=== PATIENT | female | born 1975 | race Two or more races ===

== ENCOUNTER 2020-06-01 13:52 | Inpatient (IN) | payer OTHER, SELFPAY ==
[~2020-06-01] VITALS: Ht 165.1 cm; Wt 69.4 kg
[2020-06-01] VITALS (9 sets, daily range): BP systolic 117–140; BP diastolic 67–79
--- NOTE | 2020-06-01 14:38 | NUR ---
UNIFORMER: PT TO ROOM FROM LOBBY
--- NOTE | 2020-06-01 14:51 | NUR ---
TASK RN NOTE: PT BROUGHT BACK TO ROOM, CHANGED INTO GOWN AND PLACED ON BP, SPO2 AND CARDIAC MONITORS. AT BEDSIDE. AWAITING JULIA FLOYD. REPORT TO DANIELA BOND.
[2020-06-01] MEDS ORDERED: ASPIRIN 81 MG TABLET CHEW PO ONE (15:30)
[2020-06-01] MEDS ORDERED: ONDANSETRON 2MG/ML, 2ML IVPush ONE (15:30)
[2020-06-01] MEDS ORDERED: SODIUM CHLORIDE FLUSH 10ML SYR IVF ONE (15:30)
[2020-06-01] MEDS ORDERED: MORPHINE SULFATE 4 MG/ML, 1ML ONE ×2 (15:37→17:13)
[2020-06-01] MEDS ORDERED: ONDANSETRON 2MG/ML, 2ML ONE (15:37)
[2020-06-01] MEDS ORDERED: ASPIRIN 81 MG TABLET CHEW ONE (15:37)
[2020-06-01] MEDS: MORPHINE SULFATE 4 MG/ML, 1ML IVPush PRN ×2 (15:42→17:29)
[2020-06-01 15:47] LABS: BASOPHILS % (AUTO) 1 % (0-1); EOSINOPHILS % (AUTO) 1 % (1-7); LYMPHOCYTES % (AUTO) 13 % (22-44); MEAN CORPUSCULAR HEMOGLOBIN 14.4 pg (27.0-34.8); MEAN PLATELET VOLUME 8.4 fL (7.4-10.4); MONOCYTES % (AUTO) 8 % (2-9); NEUTROPHILS % (AUTO) 77 % (42-75); PLATELET COUNT 565 x10^3/uL (130-400); RED BLOOD COUNT 3.58 x10^6/uL (3.82-5.3); RED CELL DISTRIBUTION WIDTH 21.3 % (9.6-15.2)
--- NOTE | 2020-06-01 15:48 | NUR ---
BREAK RN: PT RESTING IN ROOM. NUCLEAR WEAPONS SPECIALIST ON. NSR NOTED. FAMILY AT BEDSIDE. CALL LIGHT IN PLACE. WILL CONTINUE TO MONITOR WHILE PRIMARY RN IS ON BREAK.
[2020-06-01 15:52] LABS: ALANINE AMINOTRANSFERASE 16 U/L (12-78); ALBUMIN 2.9 g/dL (3.4-5.0); ANION GAP 8 mmol/L (5-15); CALCIUM 8.3 mg/dL (8.5-10.1); CHLORIDE 110 mmol/L (98-107)
[2020-06-01 15:56] LABS: ALKALINE PHOSPHATASE 73 U/L (45-117); BILIRUBIN,TOTAL 0.3 mg/dL (0.2-1.0); MEAN CORPUSCULAR HGB CONC 27.1 g/dL (32.4-35.8); TOTAL PROTEIN 7.7 g/dL (6.4-8.2)
--- NOTE | 2020-06-01 16:23 | NUR ---
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
[2020-06-01 16:29] LABS: MD MORPH REVIEW ONLY
[2020-06-01 16:30] LABS: ANISOCYTOSIS 1+; HYPOCHROMIA 3+; MICROCYTOSIS 2+
[2020-06-01 16:31] LABS: OVALOCYTES 1+; POLYCHROMASIA 1+; TEAR DROPS 1+
[2020-06-01 16:35] LABS: <PLATELET ESTIMATE> INCREASED
--- NOTE | 2020-06-01 16:45 | NUR ---
REPORT TO MAKEDA SUAREZ
--- NOTE | 2020-06-01 16:47 | NUR ---
PT MOVED TO ROOM 41 FOLLOWING COVID SWAB. PURPLE SLIP SENT TO BLOOD BANK. DR GALEANO AT BEDSIDE FOR ASSESSMENT.
[2020-06-01] MEDS ORDERED: NITROGLYCERIN SINGLE TAB 0.4 MG SL ONE ×2 (17:00→17:13)
[2020-06-01] MEDS ORDERED: morphine SULFATE 10 MG/ML, 1ML IVPush PRN (17:00)
[2020-06-01] MEDS ORDERED: CEFTRIAXONE PMX 1GM/50ML 50 ML IV ONE (17:00)
--- NOTE | 2020-06-01 17:00 | NUR ---
DISCUSSION WITH DR BREEN REGARDING BLOOD CULTURES, DR BREEN DENIES NEED FOR ORDERING THESE AT THIS TIME.
--- NOTE | 2020-06-01 17:03 | NUR ---
RBC TRANSFUSION INITIATED. RN TO REMAIN IN ROOM WITH PT. PT AND PT'S AWARE OF SYMPTOMS OF TRANSFUSION REACTION. NAD NOTED AT THIS TIME. 2L NC PLACED ON PT FOR H&H AND OXYGENATION SUPPORT.
[2020-06-01] MEDS ORDERED: CEFTRIAXONE PMX 1GM/50ML 50 ML ONE (17:13)
--- NOTE | 2020-06-01 17:47 | NUR ---
US AT BEDSIDE. HOB TO LEVEL OF COMFORT AND ACCESS FOR US. RN HELPED PT OUT OF PANTS. PT LAYING BACK IN BED, NAD NOTED AT THIS TIME.
[2020-06-01] MEDS: SODIUM CHLORIDE 0.9% 1,000 ML IV SCH (17:57)
--- NOTE | 2020-06-01 18:13 | NUR ---
PT TOLERATED US WELL. UP INDEPENDENTLY TO USE BATHROOM. BACK IN BED, NAD NOTED AT THIS TIME. AT BEDSIDE. FIRST UNIT STILL INFUSING AT THIS TIME. SIDE RAIL UP. AWAITING ADMISSION BED ASSIGNMENT.
--- NOTE | 2020-06-01 18:22 | NUR ---
CARDIAC DIET TEJAS ORDERED FOR PT. CALL TO LAB FOR FASTING LIPID LAB DRAW. PER LAB "WE WILL SEND SOMEONE OVER RIGHT NOW."
--- NOTE | 2020-06-01 19:07 | NUR ---
REPORT TO DANIELA BELLA. PT SITTING UP EATING DINNER. AT BEDSIDE. NAD NOTED AT THIS TIME.
[2020-06-01] MEDS: ATORVASTATIN 80 MG TABLET PO SCH (21:00)
[2020-06-01] MEDS ORDERED: METOPROLOL TARTRATE 25 MG TAB ONE (21:15)
[2020-06-01] MEDS: METOPROLOL TARTRATE 25 MG TAB PO SCH (21:24)
[2020-06-01] MEDS ORDERED: ATORVASTATIN 80 MG TABLET ONE (21:26)
--- NOTE | 2020-06-01 22:12 | NUR ---
REPORT OF PT FROM DANIELA BELLA AND ASSUMING CARE OF PT AT THIS TIME.
--- NOTE | 2020-06-01 23:25 | NUR ---
PT AMBULATES FROM RESTROOM BACK TO ROOM. 3RD UNIT OF PRBC INFUSING AT THIS TIME WITH VERIFICATION OF BLOOD PRODUCT WITH DANIELA Delvalle. PT RESTING COMFORTABLY IN [facility] AT THIS TIME WITH NADN. QUINTERO. PT HAS CALL LIGHT WITHIN REACH AT THIS TIME.
--- NOTE | 2020-06-01 23:51 | NUR ---
3RD UNIT INFUSING. 15 AND 30 MINUTE VSS AND UPDATED IN EMR. PT TOLERATING BLOOD TRANSFUSION WELL AT THIS TIME; NADN. INCREASED RATE OF INFUSION ON PUMP AT THIS TIME.
[2020-06-02 01:57] VITALS: BP 129/78
--- NOTE | 2020-06-02 02:00 | NUR ---
PT 3RD UNIT OF PRBC FINISHED INFUSING AT THIS TIME. PT TOLERATED WELL. PT VSS AND UPDATED IN EMR. PT RESTING IN [facility]; [place]. PT HAS CALL LIGHT WITHIN REACH.
[2020-06-02] MEDS ORDERED: HEPARIN 5,000 UNITS/ML, 1ML ONE (04:14)
[2020-06-02] MEDS ORDERED: HEPARIN 25,000 UNITS/250ML PMX 250 ML ONE (04:14)
--- NOTE | 2020-06-02 04:45 | NUR ---
PT MEDICATED PER MAR WITH WEIGHT BASED HEPARIN PROTOCOL AND 2 RN VERIFICATION WITH LETICIA Mccallum RN. PT VSS AND UPDATED IN EMR AT THIS TIME. PT PLACED BACK ON 2 L NC O2.
[2020-06-02] MEDS ORDERED: HEPARIN 5,000 UNITS/ML, 1ML IV ONE (05:00)
[2020-06-02] MEDS ORDERED: HEPARIN 25,000 UNITS/250ML PMX 250 ML IV PRN (05:00)
[2020-06-02 05:32] LABS: BASOPHILS % (AUTO) 1 % (0-1); EOSINOPHILS % (AUTO) 2 % (1-7); LYMPHOCYTES % (AUTO) 18 % (22-44); MEAN CORPUSCULAR HEMOGLOBIN 18.7 pg (27.0-34.8); MEAN PLATELET VOLUME 8.5 fL (7.4-10.4); MONOCYTES % (AUTO) 7 % (2-9); NEUTROPHILS % (AUTO) 72 % (42-75); PLATELET COUNT 489 x10^3/uL (130-400); RED BLOOD COUNT 4.65 x10^6/uL (3.82-5.3); RED CELL DISTRIBUTION WIDTH 32.3 % (9.6-15.2)
[2020-06-02 05:39] LABS: MEAN CORPUSCULAR HGB CONC 29.7 g/dL (32.4-35.8)
[2020-06-02 05:40] LABS: MD NO
[2020-06-02 05:43] LABS: ALANINE AMINOTRANSFERASE 22 U/L (12-78); ALBUMIN 2.6 g/dL (3.4-5.0); ANION GAP 6 mmol/L (5-15); CHLORIDE 114 mmol/L (98-107); CHOLESTEROL, TOTAL 131 mg/dL (140-239); CREATININE 0.59 mg/dL (0.55-1.02)
[2020-06-02 05:48] LABS: ALKALINE PHOSPHATASE 68 U/L (45-117); BILIRUBIN,TOTAL 1.1 mg/dL (0.2-1.0); CHOL/HDL RATIO 4.4; HDL CHOL % 23 % (28-40); HDL CHOLESTEROL (DIRECT) 30 mg/dL (40-60); LDL CHOLESTEROL,CALCULATED 85 mg/dL (54-169); LDL/HDL RATIO 2.8 (0.5-3.0); TOTAL PROTEIN 6.8 g/dL (6.4-8.2); TRIGLYCERIDES 79 mg/dL (50-200); VLDL CHOLESTEROL 16 mg/dL (0-25)
[2020-06-02] MEDS: METOPROLOL TARTRATE 25 MG TAB PO SCH ×2 (06:00→17:39)
--- NOTE | 2020-06-02 06:08 | NUR ---
PT ASLEEP IN ROLEAN AT THIS TIME. PT WOKEN UP FOR VS. PT SPOUSE AT BS. PT VSS AND UPDATED IN EMR AT THIS TIME. PT DENIES PAIN OR ANY OTHER NEEDS AT THIS TIME. CALL LIGHT IS WITHIN REACH.
--- NOTE | 2020-06-02 06:44 | NUR ---
PT AMBULATORY TO RESTROOM AT THIS TIME WITH STEADY GAIT.
[2020-06-02] MEDS ORDERED: METOPROLOL TARTRATE 25 MG TAB ONE (06:47)
[2020-06-02] MEDS ORDERED: ACETAMINOPHEN 325 MG TABLET ONE (07:19)
[2020-06-02] MEDS: ACETAMINOPHEN 325 MG TABLET PO PRN ×2 (07:22→07:23)
[2020-06-02] MEDS: SODIUM CHLORIDE 0.9% 1,000 ML IV SCH ×2 (07:23→20:39)
[2020-06-02 08:12] LABS: OCCULT BLOOD NEGATIVE (NEGATIVE)
[2020-06-02] MEDS: IRON SUCROSE COMPLEX 100MG/5ML IV SCH (08:23)
[2020-06-02] MEDS: DOCUSATE 100 MG CAPSULE PO SCH ×2 (09:00→20:39)
--- NOTE | 2020-06-02 10:15 | NUR ---
BS REPORT OF PT TO DANIELA PARMAR. ALL QUESTIONS ANSWERED.
--- NOTE | 2020-06-02 10:16 | NUR ---
DR BOWDEN AT BEDSIDE. POC DISCUSSED AND QUESTIONS ANSWERED.
--- NOTE | 2020-06-02 10:22 | NUR ---
BEDSIDE, SBAR RPT REC'D AND PT CARE ASSUMED.
[2020-06-02] MEDS: HEPARIN 5,000 UNITS/ML, 1ML IV PRN ×2 (12:53→20:41)
[2020-06-02 14:23] VITALS: BP 131/72
[2020-06-02 18:37] VITALS: BP 127/80
[2020-06-02] MEDS: ATORVASTATIN 80 MG TABLET PO SCH (20:39)
[2020-06-03 01:05] VITALS: BP 136/85
[2020-06-03 03:07] LABS: BASOPHILS % (AUTO) 2 % (0-1); EOSINOPHILS % (AUTO) 3 % (1-7); LYMPHOCYTES % (AUTO) 24 % (22-44); MEAN CORPUSCULAR HEMOGLOBIN 18.3 pg (27.0-34.8); MEAN PLATELET VOLUME 8.5 fL (7.4-10.4); MONOCYTES % (AUTO) 8 % (2-9); NEUTROPHILS % (AUTO) 64 % (42-75); PLATELET COUNT 527 x10^3/uL (130-400); RED BLOOD COUNT 4.63 x10^6/uL (3.82-5.3); RED CELL DISTRIBUTION WIDTH 32.9 % (9.6-15.2)
[2020-06-03 03:15] LABS: ALANINE AMINOTRANSFERASE 19 U/L (12-78); ALBUMIN 2.7 g/dL (3.4-5.0); ANION GAP 7 mmol/L (5-15); CALCIUM 8.3 mg/dL (8.5-10.1); CHLORIDE 115 mmol/L (98-107)
[2020-06-03 03:18] LABS: ALKALINE PHOSPHATASE 74 U/L (45-117); BILIRUBIN,TOTAL 0.6 mg/dL (0.2-1.0); TOTAL PROTEIN 7.2 g/dL (6.4-8.2)
[2020-06-03 03:37] LABS: MD SCAN; MEAN CORPUSCULAR HGB CONC 29.1 g/dL (32.4-35.8)
[2020-06-03] MEDS: HEPARIN 5,000 UNITS/ML, 1ML IV PRN (04:31)
[2020-06-03] MEDS: METOPROLOL TARTRATE 25 MG TAB PO SCH ×2 (05:36→17:20)
[2020-06-03] MEDS: SODIUM CHLORIDE 0.9% 1,000 ML IV SCH ×2 (05:36→17:22)
[2020-06-03] MEDS: DOCUSATE 100 MG CAPSULE PO SCH ×2 (08:43→20:19)
[2020-06-03] MEDS: IRON SUCROSE COMPLEX 100MG/5ML IV SCH (08:43)
[2020-06-03 09:00] VITALS: BP 118/75
[2020-06-03] MEDS ORDERED: POTASSIUM CHLORIDE 20 MEQ TAB.ER.PRT PO ONE (10:00)
[2020-06-03 10:41] LABS: HCT (SEDRATE) 30.4 % (34.6-47.8)
[2020-06-03] MEDS ORDERED: MIDAZOLAM 1 MG/ML, 5ML ONE (11:49)
[2020-06-03] MEDS ORDERED: VERAPAMIL 2.5 MG/ML, 2ML ONE (11:49)
[2020-06-03] MEDS ORDERED: FENTANYL PF 100 MCG/2ML ONE (11:49)
[2020-06-03] MEDS ORDERED: LIDOCAINE-MPF 1%, 5ML ONE (11:50)
[2020-06-03] MEDS ORDERED: HEPARIN 1,000 UNITS/ML, 10ML ONE (11:50)
[2020-06-03 12:55] LABS: OCCULT BLOOD NEGATIVE (NEGATIVE)
[2020-06-03 13:37] VITALS: BP 124/79
[2020-06-03] MEDS: ACETAMINOPHEN 325 MG TABLET PO PRN (13:58)
[2020-06-03 14:02] VITALS: BP 134/80
[2020-06-03 19:36] VITALS: BP 120/75
[2020-06-03] MEDS: ATORVASTATIN 80 MG TABLET PO SCH (20:19)
[2020-06-04] MEDS: ACETAMINOPHEN 325 MG TABLET PO PRN ×2 (00:16→05:28)
[2020-06-04 00:26] VITALS: BP 154/81
[2020-06-04] MEDS: SODIUM CHLORIDE 0.9% 1,000 ML IV SCH (02:52)
[2020-06-04] MEDS: METOPROLOL TARTRATE 25 MG TAB PO SCH (05:30)
[2020-06-04 05:53] LABS: CHLORIDE 113 mmol/L (98-107)
[2020-06-04 06:01] LABS: ALANINE AMINOTRANSFERASE 19 U/L (12-78); ALBUMIN 2.6 g/dL (3.4-5.0); ALKALINE PHOSPHATASE 71 U/L (45-117); ANION GAP 7 mmol/L (5-15); BILIRUBIN,TOTAL 0.5 mg/dL (0.2-1.0); CALCIUM 8.6 mg/dL (8.5-10.1); CREATININE 0.56 mg/dL (0.55-1.02); TOTAL PROTEIN 6.8 g/dL (6.4-8.2)
[2020-06-04 07:10] VITALS: BP 133/80
[2020-06-04 07:29] LABS: BASOPHILS % (AUTO) 1 % (0-1); EOSINOPHILS % (AUTO) 4 % (1-7); LYMPHOCYTES % (AUTO) 18 % (22-44); MEAN CORPUSCULAR HEMOGLOBIN 18.7 pg (27.0-34.8); MEAN PLATELET VOLUME 8.5 fL (7.4-10.4); MONOCYTES % (AUTO) 9 % (2-9); NEUTROPHILS % (AUTO) 69 % (42-75); PLATELET COUNT 519 x10^3/uL (130-400); RED CELL DISTRIBUTION WIDTH 32.9 % (9.6-15.2)
[2020-06-04 08:06] LABS: MD SCAN
[2020-06-04] MEDS ORDERED: LISI-167 PO (08:35)
[2020-06-04] MEDS ORDERED: ATOR-2 PO (08:35)
[2020-06-04] MEDS: DOCUSATE 100 MG CAPSULE PO SCH (08:43)
[2020-06-04] MEDS: IRON SUCROSE COMPLEX 100MG/5ML IV SCH (08:43)
[2020-06-04] MEDS ORDERED: LISINOPRIL 10 MG TABLET PO SCH (09:00)
[2020-06-04] MEDS ORDERED: METOPROLOL TARTRATE 25 MG TAB PO SCH (18:00)
== END 2020-06-04 12:01 | disposition home or self-care (01) | DRG 282 ==
LOC: ED 16:50 → EDIP 16:56 → ED 20:07 → 5SO 06-02 10:46 → DCLOUNGE 06-04 11:27
PROVIDERS: ADMIT Internal Medicine Infectious Disease; ATTEND Hospitalist
PROC: 30233N1 Transfusion of Nonautologous Red Blood Cells into Peripheral Vein, Percutaneous Approach (ICD-10-PCS; 2020-06-01)
PROC: 4A023N7 Measurement of Cardiac Sampling and Pressure, Left Heart, Percutaneous Approach (ICD-10-PCS; principal; 2020-06-03)
PROC: B2111ZZ Fluoroscopy of Multiple Coronary Arteries using Low Osmolar Contrast (ICD-10-PCS; 2020-06-03)
PROC: B2151ZZ Fluoroscopy of Left Heart using Low Osmolar Contrast (ICD-10-PCS; 2020-06-03)
DX: I21.4 Non-ST elevation (NSTEMI) myocardial infarction (principal); D50.0 Iron deficiency anemia secondary to blood loss (chronic); E87.6 Hypokalemia; I10 Essential (primary) hypertension; I27.20 Pulmonary hypertension, unspecified; N92.0 Excessive and frequent menstruation with regular cycle; Z20.828 Contact with and (suspected) exposure to other viral communicable diseases
CPT/HCPCS: 36415; 71045; 76856; 80053; 80061; 82272; 82728; 83540; 83550; 83690; 84145; 84484; 85018; 85025; 85520; 85651; 86140; 86850; 86900; 86923; 87635; 93005; 93306; 93458; 96365; 96375; 96376; 99156; 99285; C1769; C1894; G0378; J0696; J1644; J1756; J2250; J2405; J3010; J2270; J7030; P9016; Q9967

== ENCOUNTER 2021-03-06 03:10 | Inpatient (IN) | payer MEDICAID, OTHER ==
[~2021-03-06] VITALS: Ht 170.2 cm; Wt 85.8 kg
[~2021-03-06 03:10] MED LIST: ATOR-2 PO; LISI-167 PO
--- NOTE | 2021-03-06 03:28 | NUR ---
INITIAL PT CONTACT. PT PRESENTS TO ED C/O BODY ACHES, CHILLS AND "NOT FEELING WELL" SINCE LAST NIGHT. ALSO REPORTS SUBJECTIVE FEVER. RESPIRAIONS RAPID AND PT REPORTS "SOME SOB AND I CAN FEEL MY HEART BEAT IN MY NECK, I FEEL A LITTLE DIZZY AND LIGHT HEADED." PT PLACED ON CONTINUOUS MONITORING. CALL LIGHT AND PERSONAL BELONGINGS WITHIN REACH, SPOUSE AND ERP AT BEDSIDE.
[2021-03-06] MEDS ORDERED: ACETAMINOPHEN 500 MG TABLET ONE (03:45)
[2021-03-06] MEDS ORDERED: ACETAMINOPHEN 500 MG TABLET PO ONE (04:00)
[2021-03-06] MEDS ORDERED: SODIUM CHLORIDE 0.9% 1,000ML IVBOLUS ONE ×2 (04:00→05:00)
[2021-03-06 04:11] LABS: ALANINE AMINOTRANSFERASE 34 U/L (12-78); ALBUMIN 2.6 g/dL (3.4-5.0); ANION GAP 10 mmol/L (5-15); CALCIUM 7.8 mg/dL (8.5-10.1); CHLORIDE 109 mmol/L (98-107); CREATININE 0.92 mg/dL (0.55-1.02)
[2021-03-06 04:13] LABS: ALKALINE PHOSPHATASE 88 U/L (45-117); BASOPHILS % (AUTO) 1 % (0-1); BILIRUBIN,TOTAL 0.5 mg/dL (0.2-1.0); EOSINOPHILS % (AUTO) 0 % (1-7); LYMPHOCYTES % (AUTO) 12 % (22-44); MEAN CORPUSCULAR HEMOGLOBIN 19.1 pg (27.0-34.8); MONOCYTES % (AUTO) 2 % (2-9); NEUTROPHILS % (AUTO) 86 % (42-75); PLATELET COUNT 389 x10^3/uL (130-400); RED BLOOD COUNT 4.66 x10^6/uL (3.82-5.3); RED CELL DISTRIBUTION WIDTH 18.2 % (9.6-15.2); TOTAL PROTEIN 7.1 g/dL (6.4-8.2)
[2021-03-06 04:33] LABS: TROPONIN I 0.197 ng/mL (0.000-0.045)
[2021-03-06] MEDS ORDERED: ASPIRIN 81 MG TABLET CHEW ONE (04:47)
[2021-03-06] MEDS ORDERED: ASPIRIN 81 MG TABLET CHEW PO ONE (05:00)
[2021-03-06] MEDS ORDERED: CEFTRIAXONE 1,000 MG in DEXTROSE 5% 50 ML IVPB ONE (05:00)
[2021-03-06] MEDS ORDERED: AZITHROMYCIN 500 MG in SODIUM CHLORIDE 0.9% 250 ML IV ONE (05:00)
[2021-03-06] MEDS ORDERED: LISI10TA19 PO (05:14)
[2021-03-06 05:15] LABS: ANISOCYTOSIS 1+; HYPOCHROMIA 1+; MICROCYTOSIS 1+; OVALOCYTES 1+; POLYCHROMASIA 1+; TARGET CELLS 1+
[2021-03-06 05:16] LABS: <PLATELET ESTIMATE> ADEQUATE; <PLT MORPHOLOGY> NORMAL PLT MORPH; SCHISTOCYTES 1+
[2021-03-06] MEDS ORDERED: OMNIPAQUE 350 MG/ML, 75ML BOTTLE ONE (05:30)
[2021-03-06 05:45] LABS: MICROSCOPIC INDICATED
--- NOTE | 2021-03-06 06:52 | NUR ---
BEDSIDE REPORT TO TIARRA SUAREZ
[2021-03-06] MEDS ORDERED: ENOXAPARIN 40 MG/0.4 ML SQ SCH (07:00)
[2021-03-06] MEDS ORDERED: ONDANSETRON 2MG/ML, 2ML IVPush PRN (07:00)
[2021-03-06] MEDS ORDERED: ACETAMINOPHEN 325 MG TABLET PO PRN (07:00)
[2021-03-06] MEDS ORDERED: ENALAPRILAT 1.25 MG/ML, 2ML IVPush PRN (07:00)
[2021-03-06] MEDS ORDERED: GUAIFENESIN/DM 200-20MG, 10ML UDC PO PRN (07:00)
--- NOTE | 2021-03-06 07:04 | NUR ---
RECEIVED REPORT FROM DOTTY SUAREZ, PLAN OF CARE DISCUSSED. PT IN ISOLATION DUE TO COVID-19 RULE OUT. PT VERBALIZED THAT SHE IS HUNGRY, ORDERED MEAL. WAITING FOR MED/TELE BED. PT VERBALIZED UNDERSTANDING AND NO ADDITIONAL NEEDS AT THIS TIME
[2021-03-06 07:43] LABS: HCT (SEDRATE) 25.5 % (34.6-47.8)
[2021-03-06 07:43] LABS: C-REACTIVE PROTEIN, QUANT 2.5 mg/dL (0.02-0.49)
--- NOTE | 2021-03-06 08:20 | NUR ---
MEAL PROVIDED, PT STATES, "IM JUST SO TIRED", WARM BLANKETS GIVEN, VERBALIZED NO OTHER NEEDS AT THIS TIME.
[2021-03-06] MEDS ORDERED: LISINOPRIL 10 MG TABLET PO SCH (09:00)
--- NOTE | 2021-03-06 09:03 | NUR ---
REPORT TO BEV SUAREZ, PLAN OF CARE DISCUSSED.
--- NOTE | 2021-03-06 09:40 | NUR ---
PT TO TELE, NO BELONGINGS WITH PT TOOK HOME, ONLY CELL PHONE
[2021-03-06 09:44] VITALS: BP 109/70
[2021-03-06 13:16] VITALS: BP 103/49
[2021-03-06] MEDS ORDERED: CEFTRIAXONE 2 GM in DEXTROSE 5% 50 ML IVPB SCH (17:00)
[2021-03-06] MEDS: AMPICILLIN/SULBACTAM 3 GM in SODIUM CHLORIDE 0.9% 100 ML IV SCH (18:15)
[2021-03-06] MEDS: ENOXAPARIN 40 MG/0.4 ML SQ SCH (18:17)
[2021-03-06 18:49] LABS: IRON LEVEL 28 mcg/dL (50-170)
[2021-03-06 18:50] LABS: % IRON SATURATION 8 % (20-55); TOTAL IRON BINDING CAPACITY 367 mcg/dL (250-450)
[2021-03-06 20:09] VITALS: BP 120/74
[2021-03-06] MEDS: DOXYCYCLINE 100MG TABLET PO SCH (20:28)
[2021-03-07] MEDS: AMPICILLIN/SULBACTAM 3 GM in SODIUM CHLORIDE 0.9% 100 ML IV SCH ×5 (00:11→23:05)
[2021-03-07 01:39] VITALS: BP 103/66
[2021-03-07 05:08] LABS: BASOPHILS % (AUTO) 1 % (0-1); EOSINOPHILS % (AUTO) 1 % (1-7); LYMPHOCYTES % (AUTO) 19 % (22-44); MEAN CORPUSCULAR HEMOGLOBIN 19.2 pg (27.0-34.8); MEAN PLATELET VOLUME 6.7 fL (7.4-10.4); MONOCYTES % (AUTO) 14 % (2-9); NEUTROPHILS % (AUTO) 65 % (42-75); PLATELET COUNT 315 x10^3/uL (130-400); RED CELL DISTRIBUTION WIDTH 18.3 % (9.6-15.2)
[2021-03-07 05:15] LABS: ANION GAP 4 mmol/L (5-15); CALCIUM 7.7 mg/dL (8.5-10.1); CHLORIDE 112 mmol/L (98-107)
[2021-03-07 05:18] LABS: ALANINE AMINOTRANSFERASE 32 U/L (12-78); ALBUMIN 2.2 g/dL (3.4-5.0); ALKALINE PHOSPHATASE 73 U/L (45-117); BILIRUBIN,TOTAL 0.2 mg/dL (0.2-1.0); TOTAL PROTEIN 6.2 g/dL (6.4-8.2)
[2021-03-07 06:58] VITALS: BP 119/75
[2021-03-07] MEDS ORDERED: FUROSEMIDE 20 MG/2 ML IV ONE (07:30)
[2021-03-07] MEDS: DOXYCYCLINE 100MG TABLET PO SCH ×2 (10:10→20:23)
[2021-03-07 12:22] VITALS: BP 116/74
[2021-03-07] MEDS: ENOXAPARIN 40 MG/0.4 ML SQ SCH (17:46)
[2021-03-07 20:03] VITALS: BP 127/79
[2021-03-08 02:04] VITALS: BP 122/75
[2021-03-08] MEDS: AMPICILLIN/SULBACTAM 3 GM in SODIUM CHLORIDE 0.9% 100 ML IV SCH ×2 (05:31→12:00)
[2021-03-08 06:39] LABS: BASOPHILS % (AUTO) 2 % (0-1); EOSINOPHILS % (AUTO) 4 % (1-7); LYMPHOCYTES % (AUTO) 32 % (22-44); MEAN CORPUSCULAR HGB CONC 30.1 g/dL (32.4-35.8); MEAN PLATELET VOLUME 7.1 fL (7.4-10.4); MONOCYTES % (AUTO) 15 % (2-9); NEUTROPHILS % (AUTO) 47 % (42-75); PLATELET COUNT 364 x10^3/uL (130-400); RED BLOOD COUNT 4.42 x10^6/uL (3.82-5.3); RED CELL DISTRIBUTION WIDTH 18.8 % (9.6-15.2)
[2021-03-08 06:48] LABS: ALBUMIN 2.4 g/dL (3.4-5.0); ANION GAP 5 mmol/L (5-15); CALCIUM 8.3 mg/dL (8.5-10.1); CHLORIDE 112 mmol/L (98-107)
[2021-03-08 06:51] LABS: CREATININE 0.53 mg/dL (0.55-1.02)
[2021-03-08 06:52] LABS: ALANINE AMINOTRANSFERASE 30 U/L (12-78); ALKALINE PHOSPHATASE 74 U/L (45-117); BILIRUBIN,TOTAL 0.2 mg/dL (0.2-1.0); TOTAL PROTEIN 6.7 g/dL (6.4-8.2)
[2021-03-08 07:07] VITALS: BP 115/76
[2021-03-08] MEDS: DOXYCYCLINE 100MG TABLET PO SCH (08:02)
[2021-03-08] MEDS ORDERED: CIPR500T87 PO (10:57)
[2021-03-08] MEDS ORDERED: ACYC-57 PO (10:57)
== END 2021-03-08 15:56 | disposition home or self-care (01) | DRG 871 ==
LOC: ED 04:15 → EDIP 06:48 → 5SO 08:14 → EDIP 08:15 → 5SO 09:32
PROVIDERS: ADMIT Hospitalist; ATTEND Internal Medicine
DX: A41.51 Sepsis due to Escherichia coli [E. coli] (principal); J15.9 Unspecified bacterial pneumonia; I21.A1 Myocardial infarction type 2; N39.0 Urinary tract infection, site not specified; D64.9 Anemia, unspecified; Z20.822 Contact with and (suspected) exposure to COVID-19; I10 Essential (primary) hypertension; E78.5 Hyperlipidemia, unspecified; B00.1 Herpesviral vesicular dermatitis
CPT/HCPCS: 36415; 71045; 71275; 80053; 81001; 82728; 83540; 83550; 83605; 83615; 83735; 83880; 84100; 84145; 84484; 85025; 85379; 85384; 85651; 86140; 87040; 87077; 87086; 87186; 93005; 96360; 99285; G0378; J0295; J0456; J0696; Q9967; U0005; J1940; J7030; J7050; U0003